=== PATIENT | female | born 1950 | race Caucasian/White ===

== ENCOUNTER 2019-10-12 15:28 | Observation (INO) | payer MEDICARE, OTHER, SELFPAY | END 2019-10-13 19:58 | disposition home health service (06) | LOC: MEDSURG 10-13 08:43 | PROVIDERS: Admitting Provider Orthopaedic Surgery; Family Provider Family Medicine; PCP Family Medicine; Visit Provider Orthopaedic Surgery | DX: M17.11 Unilateral primary osteoarthritis, right knee (principal); Z79.82 Long term (current) use of aspirin; Z87.891 Personal history of nicotine dependence; Z23 Encounter for immunization | CPT/HCPCS: 27447; 36415 ×2; 51702; 71046; 73560; 80048; 81003; 85025 ×2; 85610; 85730; 86850; 86900; 86901; 86920; 87641; 90732; 93005; 96374; 96375; 97110; 97116 ×2; 97161; 97165; C1776 ×4; G0378 ×107; J0131; J0171; J0690; J1100 ×2; J1580; J1885; J2001; J2250; J2405 ×2; J2704; J2710; J2795 ×2; J3010 ×3; J3490; J8499 ==

== ENCOUNTER 2019-11-05 11:47 | Outpatient (RCR) | payer MEDICARE, OTHER, SELFPAY | END 2019-11-13 23:59 | disposition home or self-care (01) | LOC: SPT 11:47 | PROVIDERS: Family Provider Family Medicine; PCP Family Medicine; Visit Provider Orthopaedic Surgery | DX: Z47.1 Aftercare following joint replacement surgery (principal); Z96.651 Presence of right artificial knee joint | CPT/HCPCS: 97110; 97162 ==

== ENCOUNTER 2019-11-16 06:00 | Outpatient (RCR) | payer MEDICARE, OTHER, SELFPAY | END 2019-12-12 23:59 | disposition home or self-care (01) | LOC: SPT 06:00 | PROVIDERS: Family Provider Family Medicine; PCP Family Medicine; Visit Provider Orthopaedic Surgery | DX: Z47.1 Aftercare following joint replacement surgery (principal); Z96.651 Presence of right artificial knee joint | CPT/HCPCS: 97110; 97140 ==

== ENCOUNTER → 2019-11-23 13:24 | Outpatient (BNVA) | payer MEDICARE, OTHER, SELFPAY | PROVIDERS: Family Provider Family Medicine; PCP Family Medicine; Visit Provider Orthopaedic Surgery | DX: Z48.89 Encounter for other specified surgical aftercare (principal); Z96.651 Presence of right artificial knee joint | CPT/HCPCS: 73560; 73565 ==

== ENCOUNTER 2019-12-13 06:00 | Outpatient (RCR) | payer MEDICARE, OTHER, SELFPAY | END 2020-01-12 23:59 | disposition home or self-care (01) | LOC: SPT 06:00 | PROVIDERS: Family Provider Family Medicine; PCP Family Medicine; Visit Provider Orthopaedic Surgery | DX: Z47.1 Aftercare following joint replacement surgery (principal); Z96.651 Presence of right artificial knee joint | CPT/HCPCS: 97110 ==

== ENCOUNTER 2019-12-23 06:09 | Day surgery (SDC) | payer MEDICARE, OTHER, SELFPAY ==
[2019-12-22 14:26] VITALS: BMI 24.3
[2019-12-23 06:41] VITALS: BP 146/70; PULSE 66; RESP 18; TEMP 36.5; O2SAT 100
[2019-12-23] MEDS: sodium chloride 0.9% 1,000 ML 30 ML IV (06:51)
--- NOTE | 2019-12-23 07:09 | ANES.PREANE2 ---
Pre-Anesthetic Assessment Pre-Anesthetic Assessment: Height/Weight: Height 1.7 m Weight 70.307 kg Temp Pulse Resp BP Pulse Ox 97.7 F 66 18 146/70 100 12/23/19 06:41 12/23/19 06:41 12/23/19 06:41 12/23/19 06:41 12/23/19 06:41 Preop Diagnosis: Stiffness right knee Proposed Procedure: Operation Date: 12/23/19 07:10 Proposed Procedures p Right knee Manipulation 66478 Z96.651 M25.661(Right) - Ray Moya MD Was Beta Emmy taken within 24 hours: N/A Last intake: Intake Last Liquid Date 12/22/19 Last Liquid Time 20:00 Last Solid Date 12/22/19 Last Solid Time 17:30 Social: Social History: No alcohol and No tobacco Exam: Pre-Anes Outpt Exam: alert, oriented x 3, clear to auscultation bilaterally and regular rate & rhythm Airway: Submandibular: WNL Cervical ROM: WNL MP: 3 Dentition: Full CV/HEM: CV/HEM: HTN Comments: Pacemaker : : None reported Hepatic: Hepatic: None reported GI: GI: GERD Metabolic: Metabolic: None reported Musc/skel: Comments: Chronic pain Anesthetic Plan: ASA status: 3 Anesthesia: General Risk of > 500 ml blood loss (7ml/kg in children): No Meds/Allergies Current Medications: Current Medications Generic Name Dose Route Start Last Admin Trade Name Freq PRN Reason Stop Dose Admin Sodium Chloride 1,000 mls @ 30 ml s/hr 12/23/19 06:00 12/23/19 06:51 Sodium Chloride 0.9% IV 12/24/19 05:59 30 mls/hr .Q24H RANDALL Administration PFSH Anesthesia PFSH: Social History Smoking and tobacco status: former smoker Alcohol intake: never Data Anesthesia Cardiac Studies: No Data to Display
--- NOTE | 2019-12-23 07:32 | PM.OP ---
Operative Report Date of procedure: December 23, 2019 Pre-op Diagnosis: Stiffness right knee Post-op diagnosis: same Post-op Findings: Same Procedure Done: Manipulation right knee Pathology: none sent [facility] Therapist: Ray Moya Anesthesia: MAC and Local Estimated blood loss (mL): 0 Findings: Preoperatively the patient's knee motion was from approximately 3 to 90 degrees. Condition: stable Disposition: same day Brief History: The patient is a 69-year-old female who underwent elective right total knee arthroplasty approximately 10 weeks ago. Over the last month she has had problems maintaining range of motion. Surgical manipulation was chosen to improve motion and facilitate successful therapy Procedure: The patient was taken to the operating room and given sedation by the anesthesia department. Preoperatively motion was checked with the patient having near full extension at approximately 3 degrees and only 90 degrees of flexion. The patient's knee was then flexed with pressure applied just distal to the tibial tubercle slowly over time with gentle adhesions releasing and improve motion 120 degrees. Patient was taken to outpatient in stable condition.
[2019-12-23 07:35] VITALS: BP 136/67; PULSE 84; RESP 16; TEMP 36.3; O2SAT 95
[2019-12-23 07:50] VITALS: BP 130/70; PULSE 70; RESP 16; TEMP 36.6; O2SAT 95
--- NOTE | 2019-12-23 08:50 | PM.PACU ---
PACU note Post-Anesthesia Exam: awake and vital signs stable Disposition: discharged
== END 2019-12-23 08:40 | disposition home or self-care (01) ==
PROVIDERS: Family Provider Family Medicine; PCP Family Medicine; Visit Provider Orthopaedic Surgery
PROC: (CPT 27570; principal; 2019-12-23 07:00)
DX: M25.661 Stiffness of right knee, not elsewhere classified (principal); Z79.82 Long term (current) use of aspirin; Z87.891 Personal history of nicotine dependence; I10 Essential (primary) hypertension; Z95.0 Presence of cardiac pacemaker; K21.9 Gastro-esophageal reflux disease without esophagitis
CPT/HCPCS: 27570; 12345; J2001; J2704; J3010; J7030

== ENCOUNTER 2020-01-13 06:00 | Outpatient (RCR) | payer MEDICARE, OTHER, SELFPAY | END 2020-02-11 23:59 | disposition home or self-care (01) | LOC: SPT 06:00 | PROVIDERS: Family Provider Family Medicine; PCP Family Medicine; Visit Provider Orthopaedic Surgery | DX: Z47.1 Aftercare following joint replacement surgery (principal); Z96.651 Presence of right artificial knee joint | CPT/HCPCS: 97110 ==

== ENCOUNTER → 2020-03-22 09:57 | Outpatient (BNVA) | payer MEDICARE, OTHER, SELFPAY | PROVIDERS: Family Provider Family Medicine; PCP Family Medicine; Visit Provider Orthopaedic Surgery | DX: Z96.651 Presence of right artificial knee joint (principal); M25.561 Pain in right knee; M25.461 Effusion, right knee | CPT/HCPCS: 73560; 73565 ==

== ENCOUNTER → 2020-05-02 08:44 | Outpatient (BNVA) | payer MEDICARE, OTHER, SELFPAY | PROVIDERS: Family Provider Family Medicine; PCP Family Medicine; Visit Provider Urology | DX: N39.0 Urinary tract infection, site not specified (principal) | CPT/HCPCS: 81001 ==

== ENCOUNTER 2020-11-21 06:00 | Outpatient (RCR) | payer MEDICARE, OTHER, SELFPAY | END 2020-12-11 23:59 | disposition home or self-care (01) | LOC: SPT 06:00 | PROVIDERS: Family Provider Family Medicine; PCP Family Medicine; Referring Provider Student in an Organized Health Care Education/Training Program; Visit Provider Student in an Organized Health Care Education/Training Program | DX: Z47.1 Aftercare following joint replacement surgery (principal); Z96.651 Presence of right artificial knee joint | CPT/HCPCS: 97110; 97162 ==

== ENCOUNTER 2020-12-12 06:00 | Outpatient (RCR) | payer MEDICARE, OTHER, SELFPAY | END 2021-01-11 23:59 | disposition home or self-care (01) | LOC: SPT 06:00 | PROVIDERS: Family Provider Family Medicine; PCP Family Medicine; Referring Provider Student in an Organized Health Care Education/Training Program; Visit Provider Student in an Organized Health Care Education/Training Program | DX: Z47.1 Aftercare following joint replacement surgery (principal); Z96.651 Presence of right artificial knee joint | CPT/HCPCS: 97110 ==

== ENCOUNTER → 2020-12-29 16:58 | Outpatient (BNVA) | payer MEDICARE, OTHER, SELFPAY | PROVIDERS: Family Provider Family Medicine; PCP Family Medicine; Visit Provider Nurse Practitioner Family | DX: N39.0 Urinary tract infection, site not specified (principal) | CPT/HCPCS: 81003; 87086 ==

== ENCOUNTER → 2021-02-09 08:52 | Outpatient (BNVA) | payer MEDICARE, OTHER, SELFPAY | PROVIDERS: Family Provider Family Medicine; PCP Family Medicine; Visit Provider Urology | DX: N39.0 Urinary tract infection, site not specified (principal) | CPT/HCPCS: 81003 ==

== ENCOUNTER 2021-07-20 15:04 | Outpatient (CLI) | payer MEDICARE, OTHER, SELFPAY ==
--- NOTE | 2021-07-20 15:13 | MM_ITS ---
WS: [id number] BILATERAL DIGITAL SCREENING MAMMOGRAPHY WITH CAD CLINICAL INFORMATION: SCREENING HISTORY: Screening mammogram. No current complaints. COMPARISON: TECHNIQUE: Bilateral CC and MLO views. FINDINGS: The breasts are composed of heterogeneous fibroglandular density tissue, which can limit the detectio n of small underlying mass lesions. A few tiny stable punctate calcifications. No suspicious mass, as ymmetry, calcifications, or architectural distortion. No evidence of malignancy. MM/[id number] IMPRESSION: BI-RADS: 2-Benign FOLLOW UP: 1 Year Follow-up Recommend return to annual screening mammography.
== END 2021-07-20 15:05 | disposition home or self-care (01) ==
LOC: RADSHAW 15:08
PROVIDERS: PCP Family Medicine; Visit Provider Family Medicine
DX: Z12.31 Encounter for screening mammogram for malignant neoplasm of breast (principal)
CPT/HCPCS: 77067

== ENCOUNTER 2022-01-08 06:00 | Outpatient (RCR) | payer MEDICARE, OTHER, SELFPAY | END 2022-01-11 23:59 | disposition home or self-care (01) | LOC: SPT 06:00 | PROVIDERS: PCP Family Medicine; Referring Provider Physician Assistant; Visit Provider Physician Assistant | DX: M75.41 Impingement syndrome of right shoulder (principal) | CPT/HCPCS: 97110; 97161 ==

== ENCOUNTER 2022-01-12 06:00 | Outpatient (RCR) | payer MEDICARE, OTHER, SELFPAY | END 2022-01-26 23:59 | disposition home or self-care (01) | LOC: SPT 06:00 | PROVIDERS: PCP Family Medicine; Referring Provider Physician Assistant; Visit Provider Physician Assistant | DX: M75.41 Impingement syndrome of right shoulder (principal) | CPT/HCPCS: 97110 ==

== ENCOUNTER 2022-04-06 09:36 | Outpatient (CLI) | payer MEDICARE, OTHER, SELFPAY ==
--- NOTE | 2022-04-06 09:58 | USCV_ITS ---
Perla Kyle Age: 72 Gender: F : 1950 Exam Date: 04/06/2022 10:22 Ordering Phys: Martha Murillo Technologist: Exam Location: [facility] – [place] Indication: chest pain BP: 132 / 74 HR: 82 Rhythm: Sinus Technical Quality: Adequate MEASUREMENTS (Male / Female) Normal Values 2D ECHO LV Diastolic Diameter PLAX 3.4 cm 4.2 - 5.9 / 3.9 - 5.3 cm LV Systolic Diameter PLAX 2.2 cm IVS Diastolic Thickness 1.1 cm 0.6 - 1.0 / 0.6 - 0.9 cm IVS Systolic Thickness 1.5 cm LVPW Diastolic Thickness 1.3 cm 0.6 - 1.0 / 0.6 - 0.9 cm LVPW Systolic Thickness 1.2 cm LVOT Diameter 2.1 cm LV Ejection Fraction 2D Teich 64.3 % LV Ejection Fraction MOD 2C 58.4 % LV Ejection Fraction 2C AL 59.3 % LA Diameter 3.0 cm Aorta at Sinotubular Diameter 2.4 cm IVC Diameter 1.4 cm M-MODE Aortic Annulus Diameter 3.4 cm LA Ao Ratio MM 1.0 MV E Point Septal Separation 0.6 cm DOPPLER AV Peak Velocity 136.0 cm/s LVOT Peak Velocity 90.0 cm/s AV Area Cont Eq vti 2.6 cm squared AV Area Cont Eq pk 2.4 cm squared MV Area PHT 2.7 cm squared Mitral E to A Ratio 0.8 MV E' Velocity 34.5 cm/s Mitral E to MV E' Ratio 7.8 Mitral E to LV E' Lateral Ratio 7.2 Mitral E to LV E' Septal Ratio 8.6 TR Peak Velocity 112.7 cm/s TR Peak Gradient 5.1 mmHg TV Peak E Velocity 93.0 cm/s Right Atrial Pressure 3.0 mmHg Pulmonary Artery Systolic Pressu 8.1 mmHg FINDINGS Left Ventricle Normal left ventricular size. LV systolic function is normal with EF of 55-60%. No regional wall motion abnormalities. Grade 1 diastolic dysfunction Right Ventricle The right ventricle is normal in size and function. Right Atrium The right atrium is normal in size. Left Atrium The left atrium is normal in size. Mitral Valve Structurally normal mitral valve without significant stenosis or prolapse. There is trace mitral regurgitation. Aortic Valve Structurally normal aortic valve without significant sclerosis or stenosis. There is no aortic regurgitation. Tricuspid Valve Structurally normal tricuspid valve without significant stenosis. Trace tricuspid regurgitation. Insufficient TR jet to calculate RVSP Pulmonic Valve Not well visualized Pericardium Normal pericardium without effusion. Aorta Normal ascending aorta dimension. IVC CONCLUSIONS LV systolic function is normal with EF of 55-60% Grade 1 diastolic dysfunction Trace mitral regurgitation Trace tricuspid regurgitation No comparison studies are available Connor Thompson MD (Electronically Signed) Final Date: 18 April 2022 17:03 S
== END 2022-04-06 09:37 | disposition home or self-care (01) ==
LOC: RAD 09:38
PROVIDERS: PCP Family Medicine; Visit Provider Nurse Practitioner
DX: Z95.0 Presence of cardiac pacemaker (principal); I10 Essential (primary) hypertension
CPT/HCPCS: 93306

== ENCOUNTER → 2022-05-03 10:20 | Outpatient (BNVA) | payer MEDICARE, OTHER, SELFPAY | PROVIDERS: PCP Family Medicine; Visit Provider Urology | DX: N39.0 Urinary tract infection, site not specified (principal) | CPT/HCPCS: 99213 ==

== ENCOUNTER 2022-07-27 09:30 | Outpatient (CLI) | payer MEDICARE, OTHER, SELFPAY ==
--- NOTE | 2022-07-27 09:41 | MM_ITS ---
WS: [id number] Bilateral screening 3D tomosynthesis digital mammogram, 07/27/2022 Clinical Data: SCREEN Comparison: 07/20/2021, 09/08/2018, 08/16/2017, 07/20/2016, 06/29/2015, 06/07/2014 Findings: The breast parenchymal pattern shows heterogeneous density. No spiculated masses or clustered calcifi cations are seen. There are no secondary signs of carcinoma. MM/[place] [id number] Impression: 1. Negative bilateral mammogram unchanged. 2. Recommend annual screening mammograms. BIRADS: 1-Negative FOLLOW UP: 1 Year Follow-up The CAD traffic checker was used.
== END 2022-07-27 09:31 | disposition home or self-care (01) ==
PROVIDERS: PCP Family Medicine; Visit Provider Family Medicine
DX: Z12.31 Encounter for screening mammogram for malignant neoplasm of breast (principal)
CPT/HCPCS: 77063; 77067

== ENCOUNTER 2023-07-31 10:34 | Outpatient (CLI) | payer MEDICARE, OTHER, SELFPAY ==
--- NOTE | 2023-07-31 10:43 | MM_ITS ---
WS: [id number] Bilateral screening 3D tomosynthesis digital mammogram, 07/31/2023 Clinical Data: SCREENING Comparison: 07/27/2022, 08/20/2021, 09/08/2018, 08/16/2017, 07/20/2016, 06/29/2015, 06/07/2014, 06/05/2013, 04/01/2012, 12/06/2010, 11/25/2009, 09/29/2008, 09/19/2007, 08/29/2006. Findings: The breast parenchymal pattern shows heterogeneous density. No spiculated masses or clustered calcifi cations are seen. There are no secondary signs of carcinoma. Impression: 1. Negative bilateral mammogram unchanged. 2. Recommend annual screening mammograms. MM/[place] [id number] BIRADS: 1-Negative FOLLOW UP: 1 Year Follow-up The CAD engineering drawings checker was used.
== END 2023-07-31 10:35 | disposition home or self-care (01) ==
LOC: RAD 10:35
PROVIDERS: PCP Family Medicine; Visit Provider Family Medicine
DX: Z12.31 Encounter for screening mammogram for malignant neoplasm of breast (principal)
CPT/HCPCS: 77063; 77067

== ENCOUNTER 2024-04-24 18:35 | Emergency (ER) | payer MEDICARE, OTHER, SELFPAY ==
[2024-04-24 18:36] VITALS: BP 153/57; PULSE 72; RESP 16; TEMP 36.3; O2SAT 97; BMI 23.9
--- NOTE | 2024-04-24 18:48 | XRR_ITS ---
PROCEDURE INFORMATION: Exam: XR Right Shoulder Exam date and time: 04/24/2024 6:56 PM Age: 74 years old Clinical indication: Injury or trauma; Fall; Blunt trauma (contusions or hematomas); Shoulder; Right; Additional info: Pain/fall TECHNIQUE: Imaging protocol: Radiologic exam of the right shoulder. Views: 2 or more views. COMPARISON: CR XR chest 2V* [id number] 10/01/2019 11:20 AM FINDINGS: Bones/joints: No acute fracture. No obvious dislocation although the Y-view is mildly limited by positioning mild spurring of the inferior acromion and inferior glenoid. Soft tissues: Partially imaged dual lead cardiac pacer. Mild right basilar streak atelectasis XR/XR shoulder RT min 2V* [id number] IMPRESSION: No acute fracture. No convincing evidence of dislocation.
--- NOTE | 2024-04-24 19:29 | ED_ITS ---
HPI - Extremity Problem General: Chief complaint: Extremity Injury, Upper Stated complaint: right Shoulder injury Time Seen by Provider: 04/24/24 18:44 Source: patient Mode of arrival: ambulatory Limitations: no limitations History of Present Illness: Patient is a 74-year-old female who presents to the emergency department complaining of right shoulder injury approximately 30 minutes prior to arrival. Patient states that she hyperextended it while tripping down some stairs, with no direct trauma reported. She states that she has hurt the shoulder before, however has never underwent surgery or had any fractures. She does note that she receives periodic injections of steroids due to arthritis. She is noting severe limitation of movement as she can only hold it at her side without having any pain. She has not taken anything for her symptoms at this time. She denies any distal radiation of the pain, stating it is entirely in the proximal humerus and right shoulder joint. No other symptoms or concerning historical factors noted at this time. No distal neurovascular symptoms reported. MD Complaint: joint pain (Right shoulder) Onset (ago): minute(s) Pain Consistency: constant Location: right Radiation: none Relieving factors: nothing Exacerbating factors: range of motion Associated symptoms: Deny chest pain, fever(s) or rash Review of Systems General: Reports: 10 or more systems reviewed and unremarkable except in HPI and below Const: Denies: fever(s) or chills Card: Denies: chest pain Resp: Denies: dyspnea or productive cough GI: Denies: abdominal pain, nausea, vomiting or diarrhea : Denies: flank pain Musc: Reports: joint pain and limited range of motion; Denies: neck pain, back pain, extremity pain, extremity swelling, joint swelling, joint redness, joint warmth or muscle weakness Skin/Breast: Denies: rash Neuro: Denies: headache(s), numbness in extremities or weakness in extremities PFSH ED PFSH: Medical History Urinary incontinence Recurrent UTI High blood pressure High cholesterol Pacemaker Surgical History Hx of arthroscopic knee surgery Hx of appendectomy H/O hemorrhoidectomy History of hysterectomy History of colonoscopy History of back surgery H/O repair of left rotator cuff Family History Mother , AT AGE 83 CAD (coronary artery disease) Congestive heart failure (CHF) Father , AT AGE 75 Aortic aneurysm Denies family history of Diabetes Clotting disorder Dementia Hyperlipidemia Psychiatric illness Chronic kidney disease (CKD) Suicide Anesthesia complication Bleeding disorder Family history of premature coronary artery disease Lung disease Cancer Hypertension Stroke Social History Smoking and tobacco/nicotine status: former use of tobacco/nicotine Alcohol intake: never Substance/Drug Use: never Marital status: Current occupational status: retired Physical Exam Const: COMMON NORMALS: no acute distress, patient oriented x3, no limitations, healthy appearing, alert and well nourished HENMT: COMMON NORMALS: normocephalic and atraumatic HEAD & SCALP: normocephalic and atraumatic Neck/C-Spine: COMMON NORMALS: full ROM, supple and no meningeal signs Resp: COMMON NORMALS: normal respiratory effort, No use of accessory muscles and clear to auscultation bilaterally AUSCULTATION: clear to auscultation bilaterally Cardio: COMMON NORMALS: regular rate and regular rhythm RATE: regular rate RHYTHM: regular rhythm Extremity: COMMON NORMALS: normal to inspection, capillary refill normal, no joint enlargement and no clubbing, cyanosis or edema NARRATIVE EXTREMITY EXAM: Patient does not attempt range of motion due to the pain. She is having some reproducible tenderness to palpation of the right proximal humerus and right shoulder joint over the AC joint. There is no obvious deformity. No posterior scapular spine tenderness. No clavicular tenderness. No obvious deformity or trauma. Her distal neurovascular exam is intact. Normal elbow examination. Neuro: COMMON NORMALS: patient oriented x3, no focal motor deficits and no sensory deficits noted SENSORIUM/ORIENTATION: Yes alert MENINGEAL SIGNS: Yes no meningeal signs Skin: COMMON NORMALS: no rashes or lesions noted GENERAL SKIN EXAM: no rashes or lesions noted Course Vital Signs: Vital signs: Vital Signs Temperature 97.4 F L 04/24/24 18:36 Pulse Rate 72 04/24/24 18:36 Respiratory Rate 16 04/24/24 18:36 Blood Pressure 153/57 04/24/24 18:36 Pulse Oximetry 97 04/24/24 18:36 Oxygen Delivery Me thod Room Air 04/24/24 18:36 MDM - Extremity (Nontraumatic) Medical Decision Making Patient presented with right shoulder injury just prior to arrival. History of arthritis to that shoulder, however no fractures, dislocations, or surgeries. X-ray did not demonstrate any acute fractures dislocations, however patient was still complaining that she had very little range of motion and still some pain even after receiving a shot of Toradol and Norflex. Because of this I did order a CT that confirmed that there was no fracture or dislocation, however did find much chronic changes that could certainly explain the patient's pain. Her physical examination did not reveal any wrist drop or other concerning distal abnormalities, and there certainly were no signs of dislocation on physical examination. She is rechecked after CT findings and actually states that she feels better and does have more range of motion. I also did give her a shot of steroids here and send short prescription to pharmacy, and did instruct her to follow-up next week with pain management and primary care to continue arthritis management. No concern at this time for etiologies of anything surgical, and she can be discharged home with a sling to use as needed. Return precautions were given. Care of patient discussed with Dr. Frederick, who agrees with disposition at this time. Lab Data Radiology Impressions Shoulder X-Ray 04/24/24 18:48 IMPRESSION: No acute fracture. No convincing evidence of dislocation. Shoulder CT 04/24/24 20:16 IMPRESSION: 1. No acute fracture or dislocation. No AC widening. No soft tissue hematoma. 2. Moderate AC arthropathy including inferior spurring could predispose to dynamic rotator cuff impingement. 3. Mild glenohumeral arthrosis with mild diffusion. Other degenerative changes detailed above. All radiology interpretation(s) finalized by discharge Discharge Plan Discharge Patient Disposition: Home Clinical Impression: Sprain of right shoulder, Arthritis Condition: Stable Prescriptions: New prednisone 20 mg tablet 60 mg PO ONCE 5 Days Qty: 15 0RF No Action losartan 25 mg tablet 25 mg PO DAILY amoxicillin-pot clavulanate 875-125 mg tablet See Rx Instructions .ROUTE .COMPLEX Qty: 60 5RF Dose Instruction: Take 1 tablet by mouth twice daily Rx Instructions: Take 1 tablet by mouth twice daily aspirin [Aspir-81] 81 mg Tablet,Delayed Release (Dr/Ec) 81 mg PO DAILY pantoprazole 20 mg tablet,delayed release (DR/EC) 40 mg PO DAILY ascorbic acid (vitamin C) 500 mg Tablet 500 mg PO DAILY amlodipine 10 mg tablet 10 mg PO DAILY estradiol 0.5 mg tablet 0.5 mg PO DAILY fexofenadine-pseudoephedrine [Mariama-D 12 Hour] 60-120 mg tablet extended release 12 hr 1 tab PO DAILY fluticasone propionate 50 mcg/actuation spray,suspension 2 spray INTRANASAL DAILY PRN (Reason: Allergic Symptoms) rosuvastatin 10 mg tablet 10 mg PO DAILY lutein 20 mg Tablet 20 mg PO DAILY vitamin E mixed 400 unit Tablet 400 unit PO DAILY Calcium 600 with Vitamin D3 1 tab PO BID Discharge Orders: Discharge ED (Routine); Ordered 04/24/24 Ordered By: Heriberto Potter Referrals: Kar Jin MD [Primary Care Provider] - Discharge Diet: As Directed Discharge Activity: Limit activity as instructed Patient Instructions: Shoulder Sprain (ED), Arthritis (ED) Activity Restrictions/Additional Instructions: Steroids as prescribed. Use sling as needed. Please follow-up early next week with primary care to discuss ED visit and potential further imaging. Gentle range of motion exercises as tolerated. You may alternate Tylenol and ibuprofen at home. Ice to the joint as needed. Return with any new or worsening symptoms. Coding Level of Care Code ED News Content Specialist for Dale Silva
[2024-04-24] MEDS: orphenadrine 30 mg/mL Inj 2 mL 60 MG IM (20:02)
[2024-04-24] MEDS: ketorolac 60 mg/2 mL INJ IM (20:02)
--- NOTE | 2024-04-24 20:16 | CTR_ITS ---
PROCEDURE INFORMATION: Exam: CT Right Upper Extremity Without Contrast, Shoulder Exam date and time: 04/24/2024 8:29 PM Age: 74 years old Clinical indication: Injury or trauma; Blunt trauma (contusions or hematomas); Right; Prior surgery; Surgery date: 6+ months; Surgery type: Pacer; Patient HX: C/O RT shoulder pain with reduced rom post fall earlier today. ; Additional info: Right shoulder pain TECHNIQUE: Imaging protocol: Computed tomography of the right upper extremity without contrast. Exam focused on the shoulder. Radiation optimization: All CT scans at this facility use at least one of these dose optimization techniques: automated exposure control; mA and/or kV adjustment per patient size (includes targeted exams where dose is matched to clinical indication); or iterative reconstruction. COMPARISON: CR (CHEST, ) 04/24/2024 6:56 PM RADIATION DOSE METRICS: Total DLP (mGy-cm): 408.17 FINDINGS: Bones/joints: Partially imaged lower cervical and upper thoracic facets demonstrate moderate and mild spondylosis, respectively. Moderate disc space narrowing at C5-C6. Moderate degenerative AC joint arthrosis including marginal and inferior spurring and capsular thickening. Mild glenohumeral effusion. Mild degenerative spurring of the inferior glenoid rim and humeral head and neck junction. Mild punctate calcifications in the rotator cuff footprint suggestive of calcific rotator cuff tendinopathy of the infraspinatus. A few intra-articular punctate loose bodies may be present (series 11, image 77). Soft tissues: No soft hematoma. CT/CT shoulder RT wo con* [id number] IMPRESSION: 1. No acute fracture or dislocation. No AC widening. No soft tissue hematoma. 2. Moderate AC arthropathy including inferior spurring could predispose to dynamic rotator cuff impingement. 3. Mild glenohumeral arthrosis with mild diffusion. Other degenerative changes detailed above.
[2024-04-24] MEDS: dexamethasone 10 mg/mL INJ IM (21:12)
[2024-04-24 21:19] VITALS: BP 151/55; PULSE 73; RESP 16; TEMP 36.3; O2SAT 99
== END 2024-04-24 21:20 | disposition home or self-care (01) ==
PROVIDERS: Emergency Provider Physician Assistant; PCP Family Medicine
DX: S43.401A Unspecified sprain of right shoulder joint, initial encounter (principal); M19.011 Primary osteoarthritis, right shoulder; Z79.82 Long term (current) use of aspirin; Z87.891 Personal history of nicotine dependence; Z95.0 Presence of cardiac pacemaker; W10.8XXA Fall (on) (from) other stairs and steps, initial encounter
CPT/HCPCS: 73030; 73200; 96372; 99284; J1100; J1885; J2360

== ENCOUNTER 2024-06-01 10:29 | Outpatient (RCR) | payer MEDICARE, OTHER, SELFPAY | END 2024-06-13 23:59 | disposition home or self-care (01) | LOC: SPT 10:29 | PROVIDERS: PCP Family Medicine; Visit Provider Orthopaedic Surgery Sports Medicine | DX: M75.121 Complete rotator cuff tear or rupture of right shoulder, not specified as traumatic (principal) | CPT/HCPCS: 97110; 97161 ==

== ENCOUNTER 2024-06-14 06:00 | Outpatient (RCR) | payer MEDICARE, OTHER, SELFPAY | END 2024-07-13 23:59 | disposition home or self-care (01) | LOC: SPT 06:00 | PROVIDERS: PCP Family Medicine; Visit Provider Orthopaedic Surgery Sports Medicine | DX: M75.121 Complete rotator cuff tear or rupture of right shoulder, not specified as traumatic (principal) | CPT/HCPCS: 97110 ==

== ENCOUNTER 2024-08-05 09:36 | Outpatient (CLI) | payer MEDICARE, OTHER, SELFPAY ==
--- NOTE | 2024-08-05 09:38 | MM_ITS ---
WS: [id number] VIEWS: MLO and CC views both breasts. 3D digital tomosynthesis is also included in this exam. Comparison made with prior exam of 08/29/2006, 09/19/2007, 06/05/2013, 06/07/2014, 06/29/2015, 07/20/2016, 08/16/2017, 09/08/2018, 07/20/2021, 07/27/2022, 07/31/2023.. Findings: The breasts are heterogeneously dense, which may obscure small masses. No suspicious mass, tumor calcification or architectural distortion. MM/MM scr BI tomosynthesis [id number] Impression: BI-RADS: 2 - Benign FOLLOW-UP: 1 Year Follow-up This mammogram was also analyzed by the Computer Aided Detection System R2 Imag e Waste Management Engineer.
== END 2024-08-05 09:37 | disposition home or self-care (01) ==
LOC: RAD 09:37
PROVIDERS: PCP Family Medicine; Visit Provider Family Medicine
DX: Z12.31 Encounter for screening mammogram for malignant neoplasm of breast (principal); R92.333 Mammographic heterogeneous density, bilateral breasts
CPT/HCPCS: 77063; 77067

== ENCOUNTER 2024-11-15 10:27 | Emergency (ER) | payer MEDICARE, OTHER, SELFPAY ==
[2024-11-15 10:30] VITALS: BP 96/58; PULSE 108; RESP 16; TEMP 36.4; O2SAT 98; BMI 24.1
[2024-11-15 10:46] LABS: Basophils % 0.2 %; Eosinophils % 0.1 %; Hematocrit 46.7 % (36-47); Lymphocytes # 0.2 10^3/uL (0.8-4.8); Lymphocytes % 1.6 %; Mean Corpuscular HGB Conc 31.9 g/dL (30-55); Mean Corpuscular Hemoglobin 28.8 pg (27-33); Mean Corpuscular Volume 90.3 fl (85-98); Mean Platelet Volume 10.1 fL (7.4-10.4); Monocytes # 0.2 10^3/uL (0.2-0.9); Monocytes % 1.9 %; Neutrophils # 11.67 10^3/uL (1.8-7.7); Nucleated Red Blood Cells % 0 %; Platelet Count 282 10^3/cmm (157-399); Red Blood Count 5.17 10^6/uL (3.85-5.65); Red Cell Distribution Width 13.4 % (12.1-15.1); White Blood Count 12.15 10^3/uL (3.29-11.43)
[2024-11-15 10:54] LABS: Bilirubin Urine Negative (Negative); Blood Urine Negative (Negative); Glucose Urine UA Negative (Normal); Ketones Urine Trace (Negative); Leukocyte Esterase Urine Trace (Negative); Nitrate Urine Negative (Negative); Protein Urine Trace (Negative); Urine Appearance Clear (CLEAR); Urine Color Yellow (Yellow); pH Urine 5.5 (5-7)
[2024-11-15 10:59] LABS: Add Urine Microscopic? YES; Bacteria Urine None Seen /hpf; Specific Gravity, Urine 1.033 (1.005-1.030); WBC Urine 0-5 /hpf (0-5)
[2024-11-15 11:00] LABS: Alanine Aminotransferase 8 U/L (0-33); Alkaline Phosphatase 93 U/L (35-105); Anion Gap 20.9 (5-19); Aspartate Amino Transferase 14 U/L (0-32); Blood Urea Nitrogen 13 mg/dL (8-23); Carbon Dioxide 20 mmol/L (22-29); Chloride 99 mmol/L (98-107); Creatinine Clr Calc Pharmacy 61.2956; Globulin 3.5 g/dL (1.3-4.6); Glucose 156 mg/dL (65-115); Lipase 21 U/L (13-60); Osmolality Calculated 285 mOsm/kg (285-295); Potassium 3.9 mmol/L (3.5-5.1); Sodium 136 mmol/L (136-145); Total Bilirubin 0.4 mg/dL (0.15-1.2); Total Protein 7.5 g/dL (6.6-8.7)
--- NOTE | 2024-11-15 11:14 | W.ED.NAVMDI ---
HPI - Nausea/Vomiting/Diarrhea General: Chief complaint: Nausea/Vomiting/Diarrhea Stated complaint: n/v Time Seen by Provider: 11/15/24 11:14 History of Present Illness: 74-year-old woman with a history of hypertension and hyperlipidemia and also pacemaker placement who presents to the emergency room with nausea vomiting and diarrhea that started last night. She said she started with vomiting and then in the middle of the night she started having diarrhea. She says she feels weak now. Blood pressure soft and she slightly tachycardic and she appears dehydrated on presentation. She has diffuse abdominal cramping. No focal abdominal pain. No chest pain. No shortness of breath. No fever. Related Data Home Medications Medication Instructions Recorded Confirmed Calcium 600 with Vitamin D3 1 tab PO BID 10/13/19 05/03/22 amlodipine 10 mg tablet 10 mg PO DAILY 10/13/19 05/03/22 ascorbic acid (vitamin C) 500 mg 500 mg PO DAILY 10/13/19 05/03/22 tablet aspirin 81 mg tablet,delayed 81 mg PO DAILY 10/13/19 05/03/22 release (Aspir-) estradiol 0.5 mg tablet 0.5 mg PO DAILY 10/13/19 05/03/22 fexofenadine 60 mg-pseudoephedrine 1 tab PO DAILY 10/13/19 05/03/22 ER 120 mg tablet,ext.release,12 hr (Mariama-D 12 Hour) fluticasone propionate 50 2 spray intranasal DAILY PRN 10/13/19 05/03/22 mcg/actuation nasal Allergic Symptoms spray,suspension lutein 20 mg tablet 20 mg PO DAILY 10/13/19 05/03/22 pantoprazole 20 mg tablet,delayed 40 mg PO DAILY 10/13/19 05/03/22 release rosuvastatin 10 mg tablet 10 mg PO DAILY 10/13/19 05/03/22 vitamin E mixed 400 unit tablet 400 unit PO DAILY 10/13/19 05/03/22 losartan 25 mg tablet 25 mg PO DAILY 12/29/20 05/03/22 Previous Rx's Medication Instructions Recorded amoxicillin 875 mg-potassium See Rx Instructions .Route 01/03/23 clavulanate 125 mg tablet .COMPLEX #60 tabs ondansetron 8 mg disintegrating 8 mg PO Q6H #14 tabs 11/15/24 tablet promethazine 25 mg rectal 25 mg AL Q6H PRN nausea and 11/15/24 suppository vomiting #12 ea Allergies Allergy/AdvReac Type Severity Reaction Status Date / Time adhesive Allergy ALGY-Rash Verified 11/15/24 10:35 azithromycin Allergy Unknown Verified 11/15/24 10:35 prednisone Allergy ADR-Vomitin Verified 11/15/24 10:35 g Sulfa (Sulfonamide Allergy ALGY-Rash Verified 11/15/24 10:35 Antibiotics) codeine AdvReac ADR-Nausea Verified 11/15/24 10:35 Review of Systems Narrative: Constitutional symptoms: Negative except as documented in HPI. Skin symptoms: Negative except as documented in HPI. Eye symptoms: Negative except as documented in HPI. ENMT symptoms: Negative except as documented in HPI. Respiratory symptoms: Negative except as documented in HPI. Cardiovascular symptoms: Negative except as documented in HPI. Gastrointestinal symptoms: Negative except as documented in HPI. Genitourinary symptoms: Negative except as documented in HPI. Musculoskeletal symptoms: Negative except as documented in HPI. Neurologic symptoms: Negative except as documented in HPI. Psychiatric symptoms: Negative except as documented in HPI. Endocrine symptoms: Negative except as documented in HPI. ss PFSH ED PFSH: Medical History Urinary incontinence Recurrent UTI High blood pressure High cholesterol Pacemaker Surgical History Hx of arthroscopic knee surgery Hx of appendectomy H/O hemorrhoidectomy History of hysterectomy History of colonoscopy History of back surgery H/O repair of left rotator cuff Family History Mother , AT AGE 83 CAD (coronary artery disease) Congestive heart failure (CHF) Father , AT AGE 75 Aortic aneurysm Denies family history of Diabetes Clotting disorder Dementia Hyperlipidemia Psychiatric illness Chronic kidney disease (CKD) Suicide Anesthesia complication Bleeding disorder Family history of premature coronary artery disease Lung disease Cancer Hypertension Stroke Social History Smoking and tobacco/nicotine status: former use of tobacco/nicotine Alcohol intake: never Substance/Drug Use: never Marital status: Current occupational status: retired Physical Exam Narrative: EXAM NARRATIVE: General: Alert, no acute distress. Skin: Warm, dry. Head: Normocephalic, atraumatic. Neck: Supple, trachea midline. Eye: Extraocular movements are intact. Ears, nose, mouth and throat: Dry oral mucosa Cardiovascular: Regular, Normal peripheral perfusion. Respiratory: Lungs are clear to auscultation, respirations are non-labored, breath sounds are equal, Symmetrical chest wall expansion. Gastrointestinal: Soft, no focal tenderness, Non distended Musculoskeletal: Normal ROM, no deformity. Neurological: Alert and oriented, No focal neurological deficit observed. Psychiatric: Cooperative, appropriate mood & affect. Course Vital Signs: Vital signs: Vital Signs Temperature 97.5 F L 11/15/24 10:30 Pulse Rate 108 H 11/15/24 10:30 Respiratory Rate 16 11/15/24 10:30 Blood Pressure 144/55 11/15/24 12:00 Pulse Oximetry 98 11/15/24 10:30 Oxygen Delivery Me thod Room Air 11/15/24 10:30 MDM - Nausea/Vomiting/Diarrhea Medical Decision Making Medical decision making: Differential diagnosis for this patient with nausea and vomiting including but not limited to and based on the above HPI, review of systems and physical exam: Urinary tract infection. Appendicitis. Cholecystis. colitis. small bowel obstruction. crohn's flare. pancreatitis. gastritis. peptic ulcer. cyclic vomiting. Viral illness. Influenza. COVID. Orders placed to evaluate differential diagnosis based on the above differential, HPI and physical exam Lab Review: Laboratory results were reviewed and interpreted by myself the emergency room physician. Mild leukocytosis. No anemia. No renal failure. Urine is concentrated at 1.033. No signs of infection. Flu COVID and RSV are negative. I reviewed the patient's medical record. Reexamination: Patient is doing better now. Tolerating p.o. Blood pressure is improved and heart rate is come down after fluids. Assessment and plan: Gastroenteritis Dehydration ? Normal saline bolus and IV Zofran. - Discharged home - Discussed plan with patient. Answered any questions. - Evaluation and treatment of this problem were appropriate in the emergency setting. Lab Data 11/15/24 10:38 11/15/24 10:38 Laboratory Results WBC 12.15 10^3/uL (3.29-11.43) H 11/15/24 10:38 RBC 5.17 10^6/uL (3.85-5.65) 11/15/24 10:38 Hgb 14.90 g/dL (11.27-16.99) 11/15/24 10:38 Hct 46.7 % (36-47) 11/15/24 10:38 MCV 90.3 fl (85-98) 11/15/24 10:38 MCH 28.8 pg (27-33) 11/15/24 10:38 MCHC 31.9 g/dL (30-55) 11/15/24 10:38 RDW 13.4 % (12.1-15.1) 11/15/24 10:38 Plt Count 282 10^3/cmm (157-399) 11/15/24 10:38 MPV 10.1 fL (7.4-10.4) 11/15/24 10:38 Neut % (Auto) 96.0 % 11/15/24 10:38 Lymph % (Auto) 1.6 % 11/15/24 10:38 [place] % (Auto) 1.9 % 11/15/24 10:38 Eos % (Auto) 0.1 % 11/15/24 10:38 Baso % (Auto) 0.2 % 11/15/24 10:38 Neut # (Auto) 11.67 10^3/uL (1.8-7.7) H 11/15/24 10:38 Lymph # (Auto) 0.2 10^3/uL (0.8-4.8) L 11/15/24 10:38 [place] # (Auto) 0.2 10^3/uL (0.2-0.9) 11/15/24 10:38 Eos # (Auto) 0.0 10^3/uL (0.0-0.8) 11/15/24 10:38 Baso # (Auto) 0.0 10^3/uL (0.0-0.1) 11/15/24 10:38 Nucleated RBC % (auto) 0 % 11/15/24 10:38 Nucleated RBCs # 0.0 /100WBC 11/15/24 10:38 Sodium 136 mmol/L (136-145) 11/15/24 10:38 Potassium 3.9 mmol/L (3.5-5.1) 11/15/24 10:38 Chloride 99 mmol/L (98-107) 11/15/24 10:38 Carbon Dioxide 20 mmol/L (22-29) L 11/15/24 10:38 Anion Gap 20.9 (5-19) H 11/15/24 10:38 BUN 13 mg/dL (8-23) 11/15/24 10:38 Creatinine 0.5 mg/dL (0.5-0.9) 11/15/24 10:38 GFR Calculation Not Reportable 11/15/24 10:38 Glucose 156 mg/dL (65-115) H 11/15/24 10:38 Calculated Osmolality 285 mOsm/kg (285-295) 11/15/24 10:38 Calcium 9.0 mg/dL (8.5-10.5) 11/15/24 10:38 Total Bilirubin 0.4 mg/dL (0.15-1.2) 11/15/24 10:38 AST 14 U/L (0-32) 11/15/24 10:38 ALT 8 U/L (0-33) 11/15/24 10:38 Alkaline Phosphatase 93 U/L (35-105) 11/15/24 10:38 Total Protein 7.5 g/dL (6.6-8.7) 11/15/24 10:38 Albumin 4.0 g/dL (3.5-5.2) 11/15/24 10:38 Globulin 3.5 g/dL (1.3-4.6) 11/15/24 10:38 Lipase 21 U/L (13-60) 11/15/24 10:38 Urine Color Yellow (Yellow) 11/15/24 10:47 Urine Appearance Clear (CLEAR) 11/15/24 10:47 Urine pH 5.5 (5-7) 11/15/24 10:47 Ur Specific [place] 1.033 (1.005-1.030) H 11/15/24 10:47 Urine Protein Trace (Negative) A 11/15/24 10:47 Urine Glucose (UA) Negative (Normal) 11/15/24 10:47 Urine Ketones Trace (Negative) 11/15/24 10:47 Urine Blood Negative (Negative) 11/15/24 10:47 Urine Nitrate Negative (Negative) 11/15/24 10:47 Urine Bilirubin Negative (Negative) 11/15/24 10:47 Urine Urobilinogen 1.0 mg/dL (Negative) 11/15/24 10:47 Ur Leukocyte Esterase Trace (Negative) A 11/15/24 10:47 Urine RBC 3-5 /hpf (0-2) 11/15/24 10:47 Urine WBC 0-5 /hpf (0-5) 11/15/24 10:47 Ur Squamous Epith Cells 11-20 /hpf (0-5) H 11/15/24 10:47 Amorphous Sediment Not Reportable 11/15/24 10:47 Urine Bacteria None seen /hpf (NONE) 11/15/24 10:47 Hyaline Casts 0.40 /lpf 11/15/24 10:47 Coronavirus (PCR) Negative (Negative) 11/15/24 10:39 Influenza A (PCR) Negative (Negative) 11/15/24 10:39 Influenza Type B (PCR) Negative (Negative) 11/15/24 10:39 RSV (PCR) Negative (Negative) 11/15/24 10:39 No radiology studies performed this visit Discharge Plan Discharge Patient Disposition: Home Clinical Impression: Gastroenteritis, Dehydration Condition: Stable Prescriptions: New promethazine 25 mg suppository 25 mg AL Q6H PRN (Reason: nausea and vomiting) Qty: 12 0RF ondansetron 8 mg tablet,disintegrating 8 mg PO Q6H Qty: 14 0RF Rx Instructions: Take 1/2-1 tab every 6 hours as needed for nausea and vomiting No Action losartan 25 mg tablet 25 mg PO DAILY amoxicillin-pot clavulanate 875-125 mg tablet See Rx Instructions .ROUTE .COMPLEX Qty: 60 5RF Dose Instruction: Take 1 tablet by mouth twice daily Rx Instructions: Take 1 tablet by mouth twice daily aspirin [Aspir-81] 81 mg Tablet,Delayed Release (Dr/Ec) 81 mg PO DAILY pantoprazole 20 mg tablet,delayed release (DR/EC) 40 mg PO DAILY ascorbic acid (vitamin C) 500 mg Tablet 500 mg PO DAILY amlodipine 10 mg tablet 10 mg PO DAILY estradiol 0.5 mg tablet 0.5 mg PO DAILY fexofenadine-pseudoephedrine [Mariama-D 12 Hour] 60-120 mg tablet extended release 12 hr 1 tab PO DAILY fluticasone propionate 50 mcg/actuation spray,suspension 2 spray INTRANASAL DAILY PRN (Reason: Allergic Symptoms) rosuvastatin 10 mg tablet 10 mg PO DAILY lutein 20 mg Tablet 20 mg PO DAILY vitamin E mixed 400 unit Tablet 400 unit PO DAILY Calcium 600 with Vitamin D3 1 tab PO BID Discharge Orders: Discharge ED (Routine); Ordered 11/15/24 Ordered By: Sherlyn Frederick Discharge Diet: Advance as tolerated Discharge Activity: Increase activity as tolerated Patient Instructions: Gastroenteritis (ED), Opioid Safety, Pain Management Activity Restrictions/Additional Instructions: Thank you for choosing [facility] for your healthcare needs today. Please realize this is an emergency room and that we are providing you with a medical screening exam and this may not be complete and all inclusive of all the testing and or work up that you may need to determine your ailment or severity of your illness. You have been screened and evaluated and felt safe for discharge. Health conditions do change or evolve sometimes and as such it is important that you follow up with your Primary Doctor to be re checked, 3-5 days is a general good time frame for follow up. You are always welcome to return to the ED for re assessment if your symptoms are worsening or you have new concerns Coding Level of Care Code ED Wireless Internet Installer for Dale Silva
[2024-11-15 11:18] LABS: Covid PCR NEGATIVE (Negative); Influenza A NEGATIVE (Negative); Influenza B NEGATIVE (Negative); Respiratory Syncytial Virus Ce NEGATIVE (Negative)
[2024-11-15] MEDS: sodium chloride 0.9% 1,000 ML 999 ML IV (11:36)
[2024-11-15] MEDS: ondansetron 2 mg/ML SDV 2 mL 8 MG IVP (11:38)
[2024-11-15 11:42] VITALS: BP 122/76
[2024-11-15 12:00] VITALS: BP 144/55
[2024-11-15 13:09] VITALS: BP 145/68; PULSE 96; O2SAT 96
== END 2024-11-15 13:11 | disposition home or self-care (01) ==
PROVIDERS: Emergency Medicine; Emergency Provider Emergency Medicine
DX: K52.9 Noninfective gastroenteritis and colitis, unspecified (principal); E86.0 Dehydration; Z11.52 Encounter for screening for COVID-19; Z79.82 Long term (current) use of aspirin; Z87.891 Personal history of nicotine dependence; Z95.0 Presence of cardiac pacemaker; I10 Essential (primary) hypertension; E78.5 Hyperlipidemia, unspecified
CPT/HCPCS: 36415; 80053; 81001; 83690; 85025; 87637; 96361; 96374; 99284; J2405; J7030

== ENCOUNTER 2024-11-18 07:46 | Outpatient (RCR) | payer MEDICARE, OTHER, SELFPAY | END 2024-12-11 23:59 | disposition home or self-care (01) | LOC: SPT 07:46 | PROVIDERS: Visit Provider Nurse Practitioner Family | DX: Z98.890 Other specified postprocedural states (principal) | CPT/HCPCS: 97110; 97150; 97161 ==

== ENCOUNTER 2024-12-12 06:00 | Outpatient (RCR) | payer MEDICARE, OTHER, SELFPAY | END 2025-01-11 12:10 | disposition home or self-care (01) | LOC: SPT 06:00 | PROVIDERS: Visit Provider Nurse Practitioner Family | DX: Z98.890 Other specified postprocedural states (principal) | CPT/HCPCS: 97110 ==

== ENCOUNTER 2025-02-21 17:23 | Emergency (ER) | payer MEDICARE, OTHER, SELFPAY ==
--- NOTE | 2025-02-21 17:25 | XRR_ITS ---
PROCEDURE INFORMATION: Exam: XR Right Wrist Exam date and time: 02/21/2025 5:46 PM Age: 74 years old Clinical indication: Injury or trauma; Fall; Blunt trauma (contusions or hematomas); Wrist; Right TECHNIQUE: Imaging protocol: Radiologic exam of the right wrist. Views: 3 or more views. COMPARISON: No relevant prior studies available. FINDINGS: Limitations: No scaphoid view provided. Bones/joints: Moderate osseous demineralization. Small osseous fragments anterior to the wrist joint appear chronic possibly sequela of prior trauma. [id number] degenerative changes thumb. Mild degenerative change triscaphe joint. Questionable irregularity of the posterior carpal bones on the lateral view may represent sequela of prior triquetral injury. Soft tissues: Diffuse soft tissue swelling predominantly noted dorsally. XR/XR wrist RT min 3V* [id number] IMPRESSION: No definitive evidence of acute fracture.
[2025-02-21 17:38] VITALS: BP 130/89; PULSE 82; TEMP 36.3; O2SAT 98; BMI 25.0
[2025-02-21 20:50] VITALS: RESP 18
[2025-02-21] MEDS: oxyCODONE-APAP 5-325 mg Tablet 2 TAB PO (20:50)
--- NOTE | 2025-02-21 20:53 | W.ED.EXTPRO ---
HPI - Extremity Problem General: Chief complaint: Extremity Injury, Upper Stated complaint: fall, R wrist pain Time Seen by Provider: 02/21/25 19:29 History of Present Illness: 74-year-old female who fell on outstretched hand earlier in the day. Mechanical fall. She is complaining of wrist and hand pain. Mainly pain of the ulnar side of the wrist. She has some swelling. Pain with finger movement. Related Data Home Medications ?Medication ?Instructions ?Recorded ?Confirmed Calcium 600 with Vitamin D3 1 tab PO BID 10/13/19 05/03/22 amlodipine 10 mg tablet 10 mg PO DAILY 10/13/19 05/03/22 ascorbic acid (vitamin C) 500 mg 500 mg PO DAILY 10/13/19 05/03/22 tablet aspirin 81 mg tablet,delayed 81 mg PO DAILY 10/13/19 05/03/22 release (Aspir-) estradiol 0.5 mg tablet 0.5 mg PO DAILY 10/13/19 05/03/22 fexofenadine 60 mg-pseudoephedrine 1 tab PO DAILY 10/13/19 05/03/22 ER 120 mg tablet,ext.release,12 hr (Mariama-D 12 Hour) fluticasone propionate 50 2 spray intranasal DAILY PRN 10/13/19 05/03/22 mcg/actuation nasal Allergic Symptoms spray,suspension lutein 20 mg tablet 20 mg PO DAILY 10/13/19 05/03/22 pantoprazole 20 mg tablet,delayed 40 mg PO DAILY 10/13/19 05/03/22 release rosuvastatin 10 mg tablet 10 mg PO DAILY 10/13/19 05/03/22 vitamin E mixed 400 unit tablet 400 unit PO DAILY 10/13/19 05/03/22 losartan 25 mg tablet 25 mg PO DAILY 12/29/20 05/03/22 Previous Rx's ?Medication ?Instructions ?Recorded amoxicillin 875 mg-potassium See Rx Instructions .Route 01/03/23 clavulanate 125 mg tablet .COMPLEX #60 tabs ondansetron 8 mg disintegrating 8 mg PO Q6H #14 tabs 11/15/24 tablet promethazine 25 mg rectal 25 mg FL Q6H PRN nausea and 11/15/24 suppository vomiting #12 ea ketorolac 10 mg tablet 10 mg PO TID PRN pain #10 tabs 05/11/25 Allergies Allergy/AdvReac Type Severity Reaction Status Date / Time adhesive Allergy ALGY-Rash Verified 02/21/25 17:43 azithromycin Allergy Unknown Verified 02/21/25 17:43 prednisone Allergy ADR-Vomitin Verified 02/21/25 17:43 g Sulfa (Sulfonamide Allergy ALGY-Rash Verified 02/21/25 17:43 Antibiotics) codeine AdvReac ADR-Nausea Verified 02/21/25 17:43 PFSH ED PFSH: Medical History Urinary incontinence Recurrent UTI High blood pressure High cholesterol Pacemaker Surgical History Hx of arthroscopic knee surgery Hx of appendectomy H/O hemorrhoidectomy History of hysterectomy History of colonoscopy History of back surgery H/O repair of left rotator cuff Family History Mother , AT AGE 83 CAD (coronary artery disease) Congestive heart failure (CHF) Father , AT AGE 75 Aortic aneurysm Denies family history of Diabetes Clotting disorder Dementia Hyperlipidemia Psychiatric illness Chronic kidney disease (CKD) Suicide Anesthesia complication Bleeding disorder Family history of premature coronary artery disease Lung disease Cancer Hypertension Stroke Social History Smoking and tobacco/nicotine status: former use of tobacco/nicotine Alcohol intake: never Substance/Drug Use: never Marital status: Current occupational status: retired Physical Exam Const: COMMON NORMALS: no acute distress GENERAL APPEARANCE: cooperative; not ill appearing and not frail appearing HENMT: COMMON NORMALS: normocephalic and atraumatic HEAD & SCALP: normocephalic and atraumatic Eye: COMMON NORMALS: Equal, round and reactive pupils present and EOMs intact bilaterally PUPIL: Yes Equal, round and reactive pupils present Resp: COMMON NORMALS: normal respiratory effort EFFORT & INSPECTION: Yes symmetric chest movement Cardio: COMMON NORMALS: regular rate and regular rhythm RATE: regular rate RHYTHM: regular rhythm Extremity: NARRATIVE EXTREMITY EXAM: Examination of the right upper extremity reveals the wrist joint effusion. There is tenderness over the ulnar wrist mainly. No finger tenderness no deformity. Capillary refill is normal. Pulses are normal. Sensation is intact. Course Vital Signs: Vital signs: Vital Signs Temperature 97.4 F L 02/21/25 17:38 Pulse Rate 88 02/21/25 21:00 Respiratory Rate 16 02/21/25 21:00 Blood Pressure 142/78 02/21/25 21:00 Pulse Oximetry 97 02/21/25 21:00 Oxygen Delivery Me thod Room Air 02/21/25 17:38 MDM - Extremity (Nontraumatic) Medical Decision Making X-ray negative for fracture. Positive for joint effusion. She is placed in a Velcro wrist brace. Outpatient follow-up. Lab Data Radiology Impressions Wrist X-Ray 02/21/25 17:25 IMPRESSION: No definitive evidence of acute fracture. All radiology interpretation(s) finalized by discharge Discharge Plan Discharge Patient Disposition: Home Clinical Impression: Sprain and strain of right wrist Condition: Stable Prescriptions: New ketorolac 10 mg tablet 10 mg PO TID PRN (Reason: pain) Qty: 10 0RF No Action losartan 25 mg tablet 25 mg PO DAILY amoxicillin-pot clavulanate 875-125 mg tablet See Rx Instructions .ROUTE .COMPLEX Qty: 60 5RF Dose Instruction: Take 1 tablet by mouth twice daily Rx Instructions: Take 1 tablet by mouth twice daily aspirin [Aspir-81] 81 mg Tablet,Delayed Release (Dr/Ec) 81 mg PO DAILY pantoprazole 20 mg tablet,delayed release (DR/EC) 40 mg PO DAILY ascorbic acid (vitamin C) 500 mg Tablet 500 mg PO DAILY amlodipine 10 mg tablet 10 mg PO DAILY estradiol 0.5 mg tablet 0.5 mg PO DAILY fexofenadine-pseudoephedrine [Mariama-D 12 Hour] 60-120 mg tablet extended release 12 hr 1 tab PO DAILY fluticasone propionate 50 mcg/actuation spray,suspension 2 spray INTRANASAL DAILY PRN (Reason: Allergic Symptoms) rosuvastatin 10 mg tablet 10 mg PO DAILY lutein 20 mg Tablet 20 mg PO DAILY vitamin E mixed 400 unit Tablet 400 unit PO DAILY Calcium 600 with Vitamin D3 1 tab PO BID promethazine 25 mg suppository 25 mg FL Q6H PRN (Reason: nausea and vomiting) Qty: 12 0RF ondansetron 8 mg tablet,disintegrating 8 mg PO Q6H Qty: 14 0RF Rx Instructions: Take 1/2-1 tab every 6 hours as needed for nausea and vomiting Discharge Orders: Discharge ED (Routine); Ordered 02/21/25 Ordered By: Lorenzo Vallejo Referrals: Kar Jin MD [Primary Care Provider, Family Practice] - 4-7 days Patient Instructions: Wrist Sprain (ED), Opioid Safety, Pain Management Activity Restrictions/Additional Instructions: Ice to the wrist, especially for the first 48 hours. Wear your splint for at least 1 week. If still having significant pain, see your doctor for another x-ray. Return for any problems. Medication as directed. Print Language: Turkish Coding Level of Care Code ED Vacuum Cooker Operator for Dale Silva
[2025-02-21 21:00] VITALS: BP 142/78; PULSE 88; RESP 16; O2SAT 97
== END 2025-02-21 21:57 | disposition home or self-care (01) ==
PROVIDERS: Emergency Provider Emergency Medicine; PCP Family Medicine
DX: S63.501A Unspecified sprain of right wrist, initial encounter (principal); Z79.82 Long term (current) use of aspirin; Z87.891 Personal history of nicotine dependence; Z95.0 Presence of cardiac pacemaker; W19.XXXA Unspecified fall, initial encounter
CPT/HCPCS: 73110; 99283; J9999

== ENCOUNTER 2025-08-06 10:13 | Outpatient (CLI) | payer MEDICARE, OTHER, SELFPAY ==
--- NOTE | 2025-08-06 10:19 | MM_ITS ---
WS: [id number] BILATERAL 3D TOMOSYNTHESIS DIGITAL SCREENING MAMMOGRAPHY WITH CAD CLINICAL INFORMATION: SCREENING HISTORY: Screening mammogram. No current complaints. COMPARISON: 2023 TECHNIQUE: Bilateral CC and MLO views. FINDINGS: The breasts are composed of heterogeneous fibroglandular density tissue, which can limit the detection of small underlying mass lesions. No suspicious mass, asymmetry, calcifications, or architectural distortion. No evidence of malignancy. A few incidental punctate and lucent centered calcifications. MM/MM [facility] tomosynthesis [id number] IMPRESSION: DENSITY: The breasts are heterogeneously dense, which may obscure small masses. BI-RADS: 2 - Benign FOLLOW UP: 1 Year Follow-up Recommend return to annual screening mammography.
== END 2025-08-06 10:14 | disposition home or self-care (01) ==
PROVIDERS: PCP Family Medicine; Visit Provider Family Medicine
DX: Z12.31 Encounter for screening mammogram for malignant neoplasm of breast (principal); R92.333 Mammographic heterogeneous density, bilateral breasts; R92.323 Mammographic fibroglandular density, bilateral breasts; R92.1 Mammographic calcification found on diagnostic imaging of breast
CPT/HCPCS: 77063; 77067